=== PATIENT | male | born 1975 | race Caucasian/White ===

== ENCOUNTER 2017-03-22 06:54 | Emergency (ER) | payer SELFPAY ==
[~2017-03-22 06:54] MED LIST: DOXY100T OR; SULF1TAB47 PO; Z.0.NO CURRENT MEDS
[2017-03-22 06:55] VITALS: BP 173/108; PULSE 90; RESP 16; TEMP 98.4; O2SAT 96
== END 2017-03-22 08:32 | disposition left against medical advice (07) ==
LOC: NED 06:54
DX: R69 Illness, unspecified (principal); Z53.21 Procedure and treatment not carried out due to patient leaving prior to being seen by health care provider
CPT/HCPCS: 99281

== ENCOUNTER 2017-05-18 16:40 | Emergency (ER) | payer SELFPAY ==
[~2017-05-18] VITALS: Ht 182.9 cm; Wt 100.5 kg
[2017-05-18 16:44] VITALS: BP 159/95; PULSE 88; RESP 16; TEMP 98.1; O2SAT 97
[2017-05-18] MEDS ORDERED: CYCL1TAB29 PO (17:38)
[2017-05-18] MEDS ORDERED: DICL50TA PO (17:38)
--- NOTE | 2017-05-18 17:39 | PD ---
HPI Chief Complaint: Back/ Neck Pain or Injury Time Seen by Provider: 17:17 Travel History International Travel<30 days: No Contact w/Intl Traveler<30days: No Traveled to known affect area: No History of Present Illness HPI 42-year-old male presents to the emergency department for evaluation of left neck pain that started 2 days ago without injury. He states he did heavy lifting and then woke up the next morning with pain in his left neck. He states it hurts to turn his neck from side to side. Patient believes he may have slept on it wrong. He reports no chronic medical problems and takes no prescribed medications. He has not tried anything [id number] for the pain. Patient denies any fevers or chills. No paresthesias. No weakness. He has no other complaints at this time. [facility] Past Medical History Medical History: Denies Significant Hx Blood Disorders: No Cancer: No Cardiovascular Problems: No Diabetes: No Diminished Hearing: No Gastrointestinal Disorders: Yes GERD: No Genitourinary: Yes Hypertension: Yes Immune Disorder: No Kidney Stones: Yes Musculoskeletal: No Neurologic: Yes Psychiatric: No Reproductive: No Respiratory: Yes (HX.PNEUMONIA) Immunizations Current: Yes Tetanus Vaccination: < 5 Years Influenza Vaccination: Yes ?: Not Past Surgical History AICD: No Appendectomy: Yes Arteriovenous Shunt: No Insulin Pump: No Joint Replacement: No Pacemaker: No Other Surgery: Yes Social History Alcohol Use: No Tobacco Use: No Substance Use: Yes (SMOKES MARIJUANA ) Allergies-Medications (Allergen,Severity, Reaction): Coded Allergies: No Known Allergies (Verified , 05/18/17) Reported Meds & Prescriptions Reported Meds & Active Scripts Active No Active Prescriptions or Reported Medications Review of Systems Except as stated in HPI: all other systems reviewed are Neg Physical Exam Narrative GENERAL: Well-nourished, well-developed male patient, afebrile. SKIN: Focused skin assessment warm/dry. HEAD: Normocephalic. Atraumatic. EYES: No scleral icterus. No injection or drainage. NECK: Supple, trachea midline. No JVD or lymphadenopathy. CARDIOVASCULAR: Regular rate and rhythm without murmurs, gallops, or rubs. Left radial pulse 2+. RESPIRATORY: Breath sounds equal bilaterally. No accessory muscle use. Lungs sounds are clear to auscultation. GASTROINTESTINAL: Abdomen soft, non-tender, nondistended. MUSCULOSKELETAL: No cyanosis, or edema. Bilateral upper extremity strength 5/ 5. All extremities are neurovascularly intact. BACK: No obvious deformity. No CVA tenderness. Patient has tenderness over left trapezius muscle. No midline spinal tenderness. No swelling, erythema, warmth. Data Data Last Documented VS Vital Signs Date Time Temp Pulse Resp B/P (MAP) Pulse Ox O2 Delivery O2 Flow Rate FiO2 05/18/17 16:44 98.1 88 16 159/95 (116) 97 Orders Orders Ketorolac Inj (Toradol Inj) (05/18/17 17:45) Orphenadrine Inj (Norflex Inj) (05/18/17 17:45) MDM Medical Decision Making Medical Screen Exam Complete: Yes Emergency Medical Condition: Yes Medical Record Reviewed: Yes Differential Diagnosis Muscle strain versus muscle spasm versus torticollis Narrative Course 42-year-old male presents to the emergency department for evaluation of left neck pain that started 2 days without injury. Physical exam is consistent with muscle strain/spasm. Patient is given Toradol 60 mg IM and Norflex 60 mg IM. He'll be discharged with a prescription for diclofenac and Flexeril. He is encouraged to follow up with his primary care physician. He is use heating pad on low. He is to return here for any acute worsening of symptoms. Patient verbalizes agreement and understanding. The patient was discharged in stable condition with instructions, including return instructions and follow up instructions. Diagnosis Primary Impression: Cervical strain, acute Qualified Codes: S16.1XXA - Strain of muscle, fascia and tendon at neck level , initial encounter Referrals: Primary Care Physician 2 days Patient Instructions: Cervical Strain (ED), General Instructions Additional Instructions: Take diclofenac as directed as needed with food for pain. Take Flexeril as directed as needed. Heating pad on low for 20 minutes 4-5 times daily. Follow-up with your primary care physician. Return to the emergency department for any acute worsening of symptoms. Med/Other Pt SpecificInfo: Prescription(s) given Scripts Cyclobenzaprine (Flexeril) 10 Mg Tab 10 MG PO TID Y for MUSCLE SPASM, #21 TAB 0 Refills Prov: Leslee Whitten 05/18/17 Diclofenac Potassium (Diclofenac Potassium) 50 Mg Tab 50 MG PO TID Y for PAIN SCALE 1 TO 10, #21 TAB 0 Refills Prov: Leslee Whitten 05/18/17 Disposition: 01 DISCHARGE HOME Condition: Stable Leslee Whitten May 18, 2017 17:39
[2017-05-18] MEDS ORDERED: ORPHENADRINE INJ 60 MG/2 ML AMP IM ONE (17:45)
[2017-05-18] MEDS ORDERED: KETOROLAC TROMETHAMINE 60 MG/2 ML (IM) VIAL IM ONE (17:45)
== END 2017-05-18 18:08 | disposition home or self-care (01) ==
LOC: PHED 16:40
DX: S16.1XXA Strain of muscle, fascia and tendon at neck level, initial encounter (principal); X50.9XXA Other and unspecified overexertion or strenuous movements or postures, initial encounter
CPT/HCPCS: 96372; 99284; J1885; J2360

== ENCOUNTER 2017-08-22 08:22 | Emergency (ER) | payer SELFPAY ==
[~2017-08-22] VITALS: Ht 182.9 cm; Wt 87.0 kg
[~2017-08-22 08:22] MED LIST changes: +CYCL10TA PO; +DICL50TA PO; -DOXY100T OR; -SULF1TAB47 PO; -Z.0.NO CURRENT MEDS
[2017-08-22 08:26] VITALS: BP 160/91; PULSE 72; RESP 16; TEMP 97.2; O2SAT 98
[2017-08-22] MEDS ORDERED: SODIUM CHLOR 0.9% 1000 ML INJ 1,000 ML IV SCH (08:53)
--- NOTE | 2017-08-22 08:56 | PD ---
HPI Chief Complaint: Flank/Kidney Pain Time Seen by Provider: 08:53 Travel History International Travel<30 days: No Contact w/Intl Traveler<30days: No Traveled to known affect area: No History of Present Illness HPI 42-year-old male patient with history of kidney stones, presents to the ER today for left flank pains that is currently a 9 out of 10 starting today. He denies any vomiting, fevers, or other symptoms. He does not know any exacerbating or alleviating factors. Modifying Factors: None Associated Signs & Symptoms: Left flank pain Risk Factors: Kidney stone history PFSH Past Medical History Blood Disorders: No Cancer: No Cardiovascular Problems: No Diabetes: No Diminished Hearing: No Gastrointestinal Disorders: Yes GERD: No Genitourinary: Yes Hypertension: Yes Immune Disorder: No Kidney Stones: Yes Musculoskeletal: No Neurologic: Yes Psychiatric: No Reproductive: No Respiratory: Yes (HX.PNEUMONIA) Immunizations Current: Yes Tetanus Vaccination: < 5 Years Influenza Vaccination: No Past Surgical History AICD: No Appendectomy: Yes Arteriovenous Shunt: No Insulin Pump: No Joint Replacement: No Pacemaker: No Other Surgery: Yes Social History Alcohol Use: No Tobacco Use: No Substance Use: Yes (Marijuana daily) Allergies-Medications (Allergen,Severity, Reaction): Coded Allergies: No Known Allergies (Verified Adverse Reaction, Unknown, 08/22/17) Reported Meds & Prescriptions Reported Meds & Active Scripts Active No Active Prescriptions or Reported Medications Review of Systems Except as stated in HPI: all other systems reviewed are Neg Physical Exam Narrative GENERAL: Well-developed middle age male patient currently in moderate distress. Awake and oriented 3. SKIN: Focused skin assessment warm/dry. HEAD: Atraumatic. Normocephalic. EYES: Pupils equal and round. No scleral icterus. No injection or drainage. ENT: No nasal bleeding or discharge. Mucous membranes pink and moist. NECK: Trachea midline. No JVD. CARDIOVASCULAR: Regular rate and rhythm. No murmur appreciated. RESPIRATORY: No accessory muscle use. Clear to auscultation. Breath sounds equal bilaterally. GASTROINTESTINAL: Abdomen soft, non-tender, nondistended. Hepatic and splenic margins not palpable. BACK: Mild left CVA tenderness. No rash. No point tenderness on palpation of the spine. MUSCULOSKELETAL: No obvious deformities. No clubbing. No cyanosis. No edema. NEUROLOGICAL: Awake and alert. No obvious cranial nerve deficits. Motor grossly within normal limits. Normal speech. PSYCHIATRIC: Appropriate mood and affect; insight and judgment normal. Data Data Last Documented VS Vital Signs Date Time Temp Pulse Resp B/P (MAP) Pulse Ox O2 Delivery O2 Flow Rate FiO2 08/22/17 12:45 131/90 (104) 97 08/22/17 10:27 55 22 Room Air 08/22/17 08:26 97.2 Orders Orders Urinalysis - C+S If Indicated (08/22/17 08:37) Complete Blood Count With Diff (08/22/17 08:53) Comprehensive Metabolic Panel (08/22/17 08:53) Lipase (08/22/17 08:53) Ct Abd/Pel W/O Iv Contrast (08/22/17 08:53) Iv Access Insert/Monitor (08/22/17 08:53) Ecg Monitoring (08/22/17 08:53) Oximetry (08/22/17 08:53) Ondansetron Inj (Zofran Inj) (08/22/17 09:00) Sodium Chlor 0.9% 1000 Ml Inj (Ns 1000 M (08/22/17 08:53) Sodium Chloride 0.9% Flush (Ns Flush) (08/22/17 09:00) Ketorolac Inj (Toradol Inj) (08/22/17 09:00) Morphine Inj (Morphine Inj) (08/22/17 10:00) Morphine Inj (Morphine Inj) (08/22/17 10:15) Sodium Chlor 0.9% 1000 Ml Inj (Ns 1000 M (08/22/17 10:45) Labs Laboratory Tests Test 08/22/17 09:08 08/22/17 12:40 White Blood Count 7.4 TH/MM3 Red Blood Count 5.30 MIL/MM3 Hemoglobin 15.7 GM/DL Hematocrit 47.6 % Mean Corpuscular Volume 89.8 FL Mean Corpuscular Hemoglobin 29.6 PG Mean Corpuscular Hemoglobin Concent 32.9 % Red Cell Distribution Width 12.9 % Platelet Count 378 TH/MM3 Mean Platelet Volume 7.9 FL Neutrophils (%) (Auto) 56.0 % Lymphocytes (%) (Auto) 33.7 % Monocytes (%) (Auto) 5.3 % Eosinophils (%) (Auto) 3.2 % Basophils (%) (Auto) 1.8 % Neutrophils # (Auto) 4.2 TH/MM3 Lymphocytes # (Auto) 2.5 TH/MM3 Monocytes # (Auto) 0.4 TH/MM3 Eosinophils # (Auto) 0.2 TH/MM3 Basophils # (Auto) 0.1 TH/MM3 CBC Comment DIFF FINAL Differential Comment Blood Urea Nitrogen 14 MG/DL Creatinine 0.86 MG/DL Random Glucose 91 MG/DL Total Protein 7.4 GM/DL Albumin 3.5 GM/DL Calcium Level 8.7 MG/DL Alkaline Phosphatase 70 U/L Aspartate Amino Transf (AST/SGOT) 29 U/L Alanine Aminotransferase (ALT/SGPT) 39 U/L Total Bilirubin 0.8 MG/DL Sodium Level 140 MEQ/L Potassium Level 4.1 MEQ/L Chloride Level 104 MEQ/L Carbon Dioxide Level 30.4 MEQ/L Anion Gap 6 MEQ/L Estimat Glomerular Filtration Rate 98 ML/MIN Lipase 198 U/L Urine Collection Type CLEAN CATCH Urine Color YELLOW Urine Turbidity CLEAR Urine pH 6.5 Urine Specific [place] 1.020 Urine Protein NEG mg/dL Urine Glucose (UA) NEG mg/dL Urine Ketones 15 mg/dL Urine Occult Blood TRACE Urine Nitrite NEG Urine Bilirubin NEG Urine Leukocyte Esterase NEG Urine RBC 0-3 /hpf Urine Squamous Epithelial Cells 0-5 /hpf Microscopic Urinalysis Comment CULT NOT INDICATED Urine Collection Time 12:40 MDM Medical Decision Making Medical Screen Exam Complete: Yes Emergency Medical Condition: Yes Medical Record Reviewed: Yes Interpretation(s) Laboratory Tests Test 08/22/17 09:08 Last 24 hours Impressions Abdomen/Pelvis CT 08/22/17 0853 Signed Impressions: Service Date/Time: Tuesday, August 22, 2017 09:16 - CONCLUSION: 3 mm stone left UVJ Merlin Aguilar MD FACR Differential Diagnosis Left flank pains: Renal colic versus musculoskeletal versus UTI/pyelonephritis Narrative Course CAT scan shows a left urethral stone. Renal function is normal. Patient seems to be somewhat dehydrated, having difficulty giving a urine sample. However, this very small amount he did give was clear and did not show any significant hematuria. At this point, patient's vital signs are stable and he had been given Toradol and morphine with some symptom relief. At this point, my plan would be to release the patient with further treatment, have him strain his urine, and have him follow-up with urology. Return for any worsening in pain, fevers, and as needed. The plan has been discussed with the patient and he states understanding. Diagnosis Primary Impression: Left flank pain Additional Impression: Renal colic on left side Med/Other Pt SpecificInfo: Prescription(s) given Scripts Alfuzosin ER 24 HR (Uroxatral ER 24 HR) 10 Mg Tab 10 MG PO DAILY for BPH, #7 TAB 0 Refills Prov: Eduardo Lara MD 08/22/17 Oxycodone-Acetaminophen (Percocet) 5-325 mg Tab 1-2 TAB PO Q6H Y for PAIN, #15 TAB 0 Refills Prov: Eduardo Lara MD 08/22/17 Ibuprofen (Ibuprofen) 600 Mg Tab 600 MG PO Q6H Y for Pain/Inflammation, #20 TAB 0 Refills Prov: Eduardo Lara MD 08/22/17 Disposition: 01 DISCHARGE HOME Condition: Stable Eduardo Lara MD Aug 22, 2017 08:56
[2017-08-22] MEDS ORDERED: ONDANSETRON HCL 4 MG/2 ML VIAL IVP ONE (09:00)
[2017-08-22] MEDS ORDERED: SODIUM CHLORIDE 0.9% FLUSH 10 ML FLUSH IV FLUSH PRN (09:00)
[2017-08-22] MEDS ORDERED: KETOROLAC TROMETHAMINE 30 MG/ML (IVP) VIAL IVP ONE (09:00)
[2017-08-22 09:20] VITALS: BP 138/97; PULSE 74; RESP 18; O2SAT 97
[2017-08-22 09:23] LABS: AUTOMATED NEUTROPHIL # 4.2 TH/MM3 (1.8-7.7); BASOPHIL # 0.1 TH/MM3 (0-0.2); BASOPHIL % 1.8 % (0.0-2.0); EOSINOPHIL # 0.2 TH/MM3 (0-0.4); EOSINOPHIL % 3.2 % (0.0-4.0); HEMATOCRIT 47.6 % (39.0-51.0); HEMOGLOBIN 15.7 GM/DL (13.0-17.0); LYMPH % 33.7 % (9.0-44.0); LYMPHOCYTE # 2.5 TH/MM3 (1.0-4.8); MEAN CELL VOLUME 89.8 FL (80.0-100.0); MEAN CORPUSCULAR HEMOGLOBIN 29.6 PG (27.0-34.0); MEAN CORPUSCULAR HGB CONC 32.9 % (32.0-36.0); MEAN PLATELET VOLUME 7.9 FL (7.0-11.0); MONO % 5.3 % (0.0-8.0); MONOCYTE # 0.4 TH/MM3 (0-0.9); PLATELET COUNT 378 TH/MM3 (150-450); RED CELL DISTRIBUTION WIDTH 12.9 % (11.6-17.2); WHITE BLOOD COUNT 7.4 TH/MM3 (4.0-11.0)
--- NOTE | 2017-08-22 09:35 | RADRPT ---
EXAM DATE/TIME: 08/22/2017 09:16 [place] COMPARISON: No previous studies available for comparison. INDICATIONS : Left flank pain since this morning. Evaluate for renal stone. ORAL CONTRAST: No oral contrast ingested. RADIATION DOSE: 12.19 CTDIvol (mGy) MEDICAL HISTORY : Hypertension. Renal calculi. SURGICAL HISTORY : Appendectomy. ENCOUNTER: Initial ACUITY: 1 day PAIN SCALE: 9/10 LOCATION: Left flank TECHNIQUE: Volumetric scanning of the abdomen and pelvis was performed. Using automated exposure control and ad justment of the mA and/or kV according to patient size, radiation dose was kept as low as reasonably achievable to obtain optimal diagnostic quality images. DICOM format image data is available electro nically for review and comparison. FINDINGS: Liver, spleen, pancreas and adrenals unremarkable Tiny 1 mm stone right kidney. Left kidney: Nonobstructing stone upper pole left kidney, 3 mm. Mild prominence left ureter. 3 mm stone left UVJ with mild obstruction Pelvic contents otherwise unremarkable Bone windows reveal degenerative changes. CONCLUSION: 3 mm stone left UVJ Merlin Aguilar MD FACR on August 22, 2017 at 9:32 Board Certified Radiologist. This report was verified electronically.
[2017-08-22 09:52] LABS: CALCIUM 8.7 MG/DL (8.5-10.1)
[2017-08-22 09:53] LABS: BICARBONATE 30.4 MEQ/L (21.0-32.0); GLUCOSE,RANDOM 91 MG/DL (74-106); LIPASE 198 U/L (73-393)
[2017-08-22 09:55] LABS: ALBUMIN 3.5 GM/DL (3.4-5.0)
[2017-08-22 09:58] LABS: CREATININE 0.86 MG/DL (0.60-1.30); GLOMERULAR FILTRATION RATE 98 ML/MIN (>89)
[2017-08-22 10:00] LABS: TOTAL BILIRUBIN ADULT 0.8 MG/DL (0.2-1.0); TOTAL PROTEIN 7.4 GM/DL (6.4-8.2)
[2017-08-22] MEDS ORDERED: MORPHINE SULFATE 2 MG/ML INJ IV PUSH ONE ×2 (10:00→10:15)
[2017-08-22 10:01] LABS: ALKALINE PHOSPHATASE 70 U/L (45-117)
[2017-08-22 10:27] VITALS: BP 160/94; PULSE 55; RESP 22; O2SAT 100
[2017-08-22] MEDS ORDERED: SODIUM CHLOR 0.9% 1000 ML INJ 1,000 ML IV ONE (10:45)
[2017-08-22 11:04] LABS: CHLORIDE 104 MEQ/L (98-107); SODIUM (NA) 140 MEQ/L (136-145)
[2017-08-22 11:08] LABS: BLOOD UREA NITROGEN 14 MG/DL (7-18)
[2017-08-22 11:11] LABS: AST (GOT) 29 U/L (15-37)
[2017-08-22 11:12] LABS: ALT (GPT) 39 U/L (12-78)
[2017-08-22 12:42] LABS: BILIRUBIN, URINE NEG (NEG); BLOOD, URINE TRACE (NEG); GLUCOSE,URINE NEG (NEG); KETONE, URINE 15 mg/dL (NEG); NITRITE,URINE NEG (NEG); PH, URINE 6.5 (5.0-8.5); URINE LEUKOCYTE ESTERASE NEG (NEG)
[2017-08-22 12:45] VITALS: BP 131/90
[2017-08-22 12:46] LABS: URINE COLOR YELLOW (YELLW/STRAW)
[2017-08-22 12:47] LABS: RBC, URINE 0-3 /hpf (0-3); SQUAMOUS EPITHELIAL CELL URINE 0-5 /hpf (0-5)
[2017-08-22] MEDS ORDERED: ALFU1TAB14 PO (12:53)
[2017-08-22] MEDS ORDERED: IBUP-232 PO (12:53)
[2017-08-22] MEDS ORDERED: PERC5TAB12 PO (12:53)
== END 2017-08-22 13:06 | disposition home or self-care (01) ==
LOC: PHED 08:22
DX: N20.2 Calculus of kidney with calculus of ureter (principal); I10 Essential (primary) hypertension; F12.90 Cannabis use, unspecified, uncomplicated; Z87.442 Personal history of urinary calculi
CPT/HCPCS: 74176; 80053; 81001; 83690; 85025; 96361; 96374; 96375; 99285; J1885; J2270; J2405; J7030

== ENCOUNTER 2017-08-22 17:34 | Emergency (ER) | payer SELFPAY ==
[~2017-08-22] VITALS: Ht 182.9 cm; Wt 96.0 kg
[~2017-08-22 17:34] MED LIST changes: +ALFU1TAB14 PO; +IBUP-232 PO; +PERC5TAB12 PO
[2017-08-22 17:41] VITALS: BP 179/105; PULSE 57; RESP 16; TEMP 98.6; O2SAT 100
[2017-08-22] MEDS ORDERED: HYDROmorphone HCL PF 2 MG/ML VIAL IV PUSH ONE (18:00)
--- NOTE | 2017-08-22 18:25 | PD ---
HPI . Left flank pain Chief Complaint: Flank/Kidney Pain Time Seen by Provider: 17:55 Travel History International Travel<30 days: No Contact w/Intl Traveler<30days: No Traveled to known affect area: No History of Present Illness HPI Patient presents with a chief complaint left flank pain. Onset was at 8 AM. His pain has been waxing and waning. It is associated with diaphoresis. Pain is described as severe. There are no known modifying factors. The pain was seen in [place] earlier today for the same thing. He was diagnosed with a left ureteral stone and was discharged with prescriptions for Percocet, ibuprofen and Flomax. The patient states that he has not been able to find a pharmacy open today to fill these prescriptions. He subsequently presents to us complaining with severe pain. PFSH Past Medical History Blood Disorders: No Cancer: No Cardiovascular Problems: No Diabetes: No Diminished Hearing: No Gastrointestinal Disorders: Yes GERD: No Genitourinary: Yes Hypertension: Yes Immune Disorder: No Kidney Stones: Yes Musculoskeletal: No Neurologic: Yes Psychiatric: No Reproductive: No Respiratory: Yes (HX.PNEUMONIA) Immunizations Current: Yes Tetanus Vaccination: < 5 Years Influenza Vaccination: Yes Past Surgical History AICD: No Appendectomy: Yes Arteriovenous Shunt: No Insulin Pump: No Joint Replacement: No Pacemaker: No Other Surgery: Yes Social History Alcohol Use: No Tobacco Use: Yes Substance Use: Yes (Marijuana daily) Allergies-Medications (Allergen,Severity, Reaction): Coded Allergies: No Known Allergies (Verified Adverse Reaction, Unknown, 08/22/17) Reported Meds & Prescriptions Reported Meds & Active Scripts Active Uroxatral ER 24 HR (Alfuzosin ER 24 HR) 10 Mg Tab 10 Mg PO DAILY Percocet (Oxycodone-Acetaminophen) 5-325 mg Tab 1-2 Tab PO Q6H PRN Ibuprofen 600 Mg Tab 600 Mg PO Q6H PRN Review of Systems Except as stated in HPI: all other systems reviewed are Neg General / Constitutional: Positive: Other (diaphoresis), No: Fever, Chills Gastrointestinal: No: Nausea, Vomiting Genitourinary: Positive: Flank Pain, No: Urgency, Frequency, Dysuria Physical Exam Narrative GENERAL: Patient looks like he is in pain. SKIN: Diaphoretic. HEAD: Normocephalic. Atraumatic. EYES: Pupils equal and round. No scleral icterus. No injection or drainage. ENT: No nasal bleeding or discharge. Mucous membranes pink and moist. NECK: Trachea midline. Full range of motion without pain.. CARDIOVASCULAR: Regular rate and rhythm. Heart sounds normal. RESPIRATORY: No accessory muscle use. Clear to auscultation. Breath sounds equal bilaterally. GASTROINTESTINAL: Abdomen soft. Nontender. Bowel sounds present. Nondistended. : Positive left CVA tenderness. MUSCULOSKELETAL: No obvious deformities. NEUROLOGICAL: Awake and alert. No obvious cranial nerve deficits. Motor grossly within normal limits. Normal speech. PSYCHIATRIC: Appropriate mood and affect; insight and judgment normal. Data Data Last Documented VS Vital Signs Date Time Temp Pulse Resp B/P (MAP) Pulse Ox O2 Delivery O2 Flow Rate FiO2 08/22/17 18:38 16 08/22/17 17:41 98.6 57 179/105 (129) 100 Orders Orders Hydromorphone Pf Inj (Dilaudid Pf Inj) (08/22/17 18:00) [facility] Medical Decision Making Medical Screen Exam Complete: Yes Emergency Medical Condition: Yes Differential Diagnosis Differential diagnosis of flank pain includes but is not limited to kidney stone , pyelonephritis, musculoskeletal pain, PE Narrative Course This patient presents with left flank pain. He has already been seen today and diagnosed with a left ureteral stone. Workup will not be repeated. CT from earlier today: Abdomen/Pelvis CT 08/22/17 0853 Signed Impressions: Service Date/Time: Tuesday, August 22, 2017 09:16 - CONCLUSION: 3 mm stone left UVJ Merlin Aguilar MD FACR I have ordered an IV with IV Dilaudid and Zofran. This patient has been resting comfortably since being medicated. He will be discharged to home. Diagnosis Primary Impression: Kidney stone on left side Patient Instructions: General Instructions, Kidney Stones (DC) Disposition: DISCHARGE HOME Condition: Stable Magda Santana MD Aug 22, 2017 18:25
[2017-08-22 18:38] VITALS: RESP 16
[2017-08-22 19:22] VITALS: BP 131/63; TEMP 98.3
== END 2017-08-22 19:24 | disposition home or self-care (01) ==
LOC: NEPD 17:34
DX: N20.2 Calculus of kidney with calculus of ureter (principal); I10 Essential (primary) hypertension; F12.90 Cannabis use, unspecified, uncomplicated; Z87.442 Personal history of urinary calculi; Z72.0 Tobacco use
CPT/HCPCS: 96374; 99284; J1170

== ENCOUNTER 2018-02-17 15:51 | Emergency (ER) | payer SELFPAY ==
[~2018-02-17] VITALS: Ht 182.9 cm; Wt 82.0 kg
[~2018-02-17 15:51] MED LIST changes: -CYCL10TA PO; -DICL50TA PO
[2018-02-17 15:55] VITALS: BP 131/82; PULSE 87; RESP 16; TEMP 98.3; O2SAT 97
[2018-02-17] MEDS ORDERED: BACT800T5 PO (16:37)
[2018-02-17] MEDS ORDERED: CEPH-460 PO (16:37)
--- NOTE | 2018-02-17 16:40 | PD ---
HPI Chief Complaint: Skin Problem Time Seen by Provider: 16:32 Travel History International Travel<30 days: No Contact w/Intl Traveler<30days: No Traveled to known affect area: No History of Present Illness HPI Patient is a 43-year-old male who presents the emergency room with complaints of "redness " to his left knee. Patient reports that 2 weeks ago, he was fixing the shingles on his roof, reports that he scraped up his left knee on the roof. His knee was healing up until 2 days ago. Reports that 2 days ago, he noticed increased redness to his left knee. Denies any drainage from it. Reports "I think it's infected." Tetanus is up to date. PFSH Past Medical History Blood Disorders: No Cancer: No Cardiovascular Problems: No Diabetes: No Diminished Hearing: No Gastrointestinal Disorders: Yes GERD: No Genitourinary: Yes Hypertension: Yes Immune Disorder: No Kidney Stones: Yes Musculoskeletal: No Neurologic: Yes Psychiatric: No Reproductive: No Respiratory: Yes (HX.PNEUMONIA) Immunizations Current: Yes Past Surgical History AICD: No Appendectomy: Yes Arteriovenous Shunt: No Insulin Pump: No Joint Replacement: No Pacemaker: No Other Surgery: Yes Social History Alcohol Use: No Tobacco Use: No Substance Use: Yes (Marijuana daily) Allergies-Medications (Allergen,Severity, Reaction): Coded Allergies: No Known Allergies (Verified Adverse Reaction, Unknown, 02/17/18) Reported Meds & Prescriptions Reported Meds & Active Scripts Active Bactrim DS (Sulfamethoxazole-Trimethoprim) 800-160 Mg Tab 1 Tab PO BID 7 Days Keflex (Cephalexin) 500 Mg Cap 500 Mg PO Q6H 7 Days Review of Systems General / Constitutional: No: Fever Eyes: No: Visual changes HENT: No: Headaches Cardiovascular: No: Chest Pain or Discomfort Respiratory: No: Shortness of Breath Gastrointestinal: No: Abdominal Pain Genitourinary: No: Dysuria Musculoskeletal: No: Pain Skin: Positive Rash (Rash to knee) Neurologic: No: Weakness Psychiatric: No: Depression Endocrine: No: Polydipsia Hematologic/Lymphatic: No: Easy Bruising Physical Exam Narrative GENERAL: Well-nourished, well-developed patient. SKIN: Focused skin assessment warm/dry. HEAD: Normocephalic. EYES: No scleral icterus. No injection or drainage. NECK: Supple, trachea midline. No JVD or lymphadenopathy. CARDIOVASCULAR: Regular rate and rhythm without murmurs, gallops, or rubs. RESPIRATORY: Breath sounds equal bilaterally. No accessory muscle use. GASTROINTESTINAL: Abdomen soft, non-tender, nondistended. MUSCULOSKELETAL: No cyanosis, or edema. Patient with redness to right knee, there is no streaking, there is no petechia purpura, there is no knee effusion BACK: Nontender without obvious deformity. No CVA tenderness. Data Data Last Documented VS Vital Signs Date Time Temp Pulse Resp B/P (MAP) Pulse Ox O2 Delivery O2 Flow Rate FiO2 02/17/18 15:55 98.3 87 16 131/82 (98) 97 Orders Orders Cephalexin (Keflex) (02/17/18 16:45) Sulfamet-Trimeth Ds 800-160 Mg (Bactrim (02/17/18 16:45) [facility] Medical Decision Making Medical Screen Exam Complete: Yes Emergency Medical Condition: Yes Medical Record Reviewed: Yes Interpretation(s) Vital Signs Date Time Temp Pulse Resp B/P (MAP) Pulse Ox O2 Delivery O2 Flow Rate FiO2 02/17/18 15:55 98.3 87 16 131/82 (98) 97 Differential Diagnosis cellulitis vs bursitis Narrative Course 43-year-old male who presents the emergency room with complaints of left knee cellulitis, there is no swelling, no drainage, no evidence of bursitis. Patient 's tetanus is up-to-date. Plan to start patient on antibiotics. Signs and symptoms of when to return to the emergency room was reviewed patient in detail Diagnosis Primary Impression: Cellulitis of knee, left Patient Instructions: General Instructions Additional Instructions: Please take all antibiotics as prescribed Please follow up with your primary care doctor in 2-3 days Return to the ER if symptoms worsen or progress Return to the ER as needed Return to the emergency room if you develop any fevers or chills or progressing or worsening symptoms. Med/Other Pt SpecificInfo: Prescription(s) given Scripts Sulfamethoxazole-Trimethoprim (Bactrim DS) 800-160 Mg Tab 1 TAB PO BID for Infection for 7 Days, #14 TAB 0 Refills Prov: Yazmin Pitt DO 02/17/18 Cephalexin (Keflex) 500 Mg Cap 500 MG PO Q6H for Infection for 7 Days, #28 CAP 0 Refills Prov: Yazmin Pitt DO 02/17/18 Disposition: 01 DISCHARGE HOME Condition: Stable Yazmin Pitt DO Feb 17, 2018 16:40
[2018-02-17] MEDS ORDERED: SULFAMETHOXAZOLE-TRIMETHOPRIM DS 800-160 MG TAB PO ONE (16:45)
[2018-02-17] MEDS ORDERED: TETANUS/DIPHTHERIA TOXOID ADULT 0.5 ML VIAL IM ONE (16:45)
[2018-02-17] MEDS ORDERED: CEPHALEXIN MONOHYDRATE 500 MG CAP PO ONE (16:45)
== END 2018-02-17 17:03 | disposition home or self-care (01) ==
LOC: PHEFT 15:51
DX: L03.116 Cellulitis of left lower limb (principal); W22.8XXA Striking against or struck by other objects, initial encounter; Y93.H9 Activity, other involving exterior property and land maintenance, building and construction; I10 Essential (primary) hypertension; Z87.442 Personal history of urinary calculi
CPT/HCPCS: 99283